=== PATIENT | male | born 1970 | race Caucasian/White ===

== ENCOUNTER 2020-08-31 22:29 | Emergency (ER) | payer OTHER ==
[~2020-08-31] VITALS: Ht 165.1 cm; Wt 81.7 kg
[~2020-08-31 22:29] MED LIST: FLEXERIL PO; HYDROCODONE-APA1 TA1 PO
[2020-08-31 23:13] LABS: ABSOLUTE EOSINOPHILS 0.2 thou/uL (0.0-0.7); ABSOLUTE LYMPHOCYTES 1.7 thou/uL (0.8-5.3); ABSOLUTE NEUTROPHILS 4.7 thou/uL (1.6-8.1); BASOPHILS 0.6 %; EOSINOPHILS 2.3 %; HEMOGLOBIN 14.7 gm/dL (14.0-18.0); LYMPHOCYTES 21.8 %; MCH 32.2 pg (26.0-34.0); MCHC 33.5 g/dL (28.0-37.0); MCV 96.2 fL (80.0-100.0); MONOCYTES 13.1 %; MPV 8.5 fl. (7.2-11.1); NUCLEATED RBCS 0 /100WBC; PLATELET COUNT* 216 thou/uL (150-400); POLYS 62.2 %; RBC 4.57 mil/uL (4.50-6.00); RDW-CV 13.6 % (10.5-14.5); WBC 7.6 thou/uL (4.0-11.0)
[2020-08-31 23:18] LABS: CALCIUM 9.1 mg/dL (8.5-10.1); CREATININE 1.4 mg/dL (0.6-1.3); POTASSIUM 3.8 mmol/L (3.5-5.1)
[2020-08-31 23:22] LABS: INR 1.1; PROTIME 11.4 Seconds (9.20-11.50)
[2020-08-31 23:28] LABS: ALBUMIN 3.9 g/dL (3.4-5.0); TOTAL BILIRUBIN 0.5 mg/dL (<0.1-1.0); TOTAL PROTEIN 7.9 g/dL (6.4-8.2)
[2020-09-01 02:12] VITALS: BP 130/95
--- NOTE | 2020-09-01 11:13 | EKG ---
[place] [address] ELECTROCARDIOGRAM REPORT Name: PATEL MATTHEWS Room: [facility]#: [id number] Admission: 08/31/20 Attend Phys: Discharge: 09/01/20 Date of : 66 Date of Service: 08/31/202233 Report #: [id number] THIS REPORT FOR: //name// [facility] ED Test Date: 2020-08-31 Test Time: 22:34:20 Pat Name: PATEL MATTHEWS Department: Room: Gender: Colleter: LINSEY : 1970 Requested By: Peace Worthington Order Number: [id number] MD: Antonio Navarro Measurements Intervals [place] Rate: 94 P: 53 TX: 212 QRS: 64 QRSD: 98 T: 69 QT: 354 QTc: 443 Interpretive Statements Sinus rhythm Atrial premature complex Prolonged [place] interval Probable left atrial enlargement Minimal ST elevation, anterior leads Baseline wander in lead(s) II,III,aVF,V4 No previous ECG available for comparison Electronically Signed On 09-01-2020 11:13:12 CDT by Antonio Navarro [email or web address] <ELECTRONICALLY SIGNED> By: Antonio Navarro MD, [facility] 09/01/20 1113 33 33 Antonio Navarro MD, [facility] /EPI
== END 2020-09-01 02:12 | disposition home or self-care (01) ==
LOC: M.ERS 22:29
PROVIDERS: Personal Emergency Response Attendant
DX: R05 Cough (principal); Z20.822 Contact with and (suspected) exposure to COVID-19; F10.129 Alcohol abuse with intoxication, unspecified; Y90.6 Blood alcohol level of 120-199 mg/100 ml; I16.0 Hypertensive urgency; Z88.6 Allergy status to analgesic agent; Z88.5 Allergy status to narcotic agent